=== PATIENT | male | born 1985 | race Caucasian/White ===

== ENCOUNTER 2021-09-10 02:03 | Emergency (ER) | payer BC, SELFPAY ==
--- NOTE | ~2021-09-10 | CT_ITS ---
EXAMINATION: CT abdomen pelvis wo con DATE: 09/10/2021 02:37 INDICATION: Left abdominal pain. TECHNIQUE: Computed tomography (CT) of the abdomen and pelvis was performed without intravenous contr ast. Automated exposure control and iterative reconstruction technique were employed. The dose-length product was 858.46 mGy-cm. COMPARISON: None. FINDINGS: The visualized portions of the lung bases are clear without pneumonia or pleural effusion. The heart size is normal. No pericardial effusion. The liver and spleen are normal. There are gallsto lindsey in the gallbladder, which is normal in size. The pancreas, adrenal glands, and kidneys are normal . There is no urolithiasis. There are no dilated loops of bowel. The appendix is normal. There are no pathologically enlarged lymph nodes. There is no free intraperitoneal fluid. There is mild thoracolu mbar spondylosis. IMPRESSION: 1. Cholelithiasis. Reviewed, dictated and finalized at location A. IMPRESSION: 1. Cholelithiasis.
[2021-09-10 02:05] VITALS: BP 113/58; PULSE 82; RESP 14; TEMP 36.2; O2SAT 98
--- NOTE | 2021-09-10 02:21 | ED.ABDPAIN ---
HPI - Abdominal Pain General Chief Complaint: Abdominal Pain Stated Complaint: abdominal pain Time Seen by Provider: 09/10/21 02:13 History of Present Illness HPI narrative: 35-year-old male presents emergency room secondary to relatively acute onset of some left-sided abdominal pain. He states he went to bed and essentially his normal state of health and woke up and having pain. He describes it as somewhat of a sharp pain. He is nonspecific and weight tries to describe was going on. However he was in such pain on the way here they had to mandrel puller and he had emesis. Never had kidney stones before. His appetites been good lately. He denies any bowel problems such as diarrhea constipation. Denies any urinary complaints. Is never had any surgeries on his abdomen. He states that it does not really hurt when he moves but when he was driving over here seems like when they hit bumps it would hurt more. He did feel a little bloated earlier in the evening. Maintain a good appetite. Related Data Allergies Allergy/AdvReac Type Severity Reaction Status Date / Time No Known Allergies Allergy Verified 09/10/21 02:08 Review of Systems Review of Systems: CONSTITUTIONAL: Denies fever, chills, or sweats. EYES: Denies visual changes, redness, or discharge. ENT: Denies rhinorrhea, congestion, sore throat, or otalgia. CARDIOVASCULAR: Denies chest pain, palpitations, or edema. RESPIRATORY: Denies cough or dyspnea. GASTROINTESTINAL: As per HPI patient had pain to the left side of his abdomen. Had nausea and vomiting on the way to the emergency department no diarrhea constipation GENITOURINARY: Denies dysuria or hematuria. SKIN: Denies rash or itching. MUSCULOSKELETAL: Denies back pain, joint pain, or myalgia. NEUROLOGIC: Denies headache, numbness, or weakness. PSYCHIATRIC: Denies anxiety or depression. [facility] Past Medical History Medical History (Updated 09/10/21 @ 04:25 by Montrell Presley DO) No pertinent past medical history Surgical History Surgical History (Updated 09/10/21 @ 02:23 by Montrell Presley DO) No pertinent past surgical history Social History Social History (Updated 09/10/21 @ 02:23 by Montrell Presley DO) Smoking status: Never smoker Alcohol intake: never Living arrangements: with family Exam Narrative: APPEARANCE: Well appearing, no pain or distress, well-nourished. Head normocephalic and atraumatic. EYES: PERRLA/EOMI, conjunctivae very clear. NOSE: Normal with no drainage EARS:TMS clear Ned Pena, with good light reflex. THROAT: Pharynx clear, no exudate. NECK: Supple. No adenopathy, no masses. RESPIRATORY: Airway patent, respirations nonlabored. Clear to auscultation bilaterally, no rales, rhonchi, wheezing. CARDIOVASCULAR: Regular rate and rhythm without murmurs, rubs, or gallops. ABDOMINAL: Soft with no masses. No rebound rigidity guarding. Not have hyperactive bowel sounds. Musculoskeletal: Moves all extremities. Strength/ROM intact, No edema, No calf tenderness. NEURO: Alert. Cranial nerves II through XII intact. Normal gait. Good coordination. Nonfocal examination. SKIN:: Warm, dry. Normal Color PSYCHIATRIC: Normal affect/mood, normal interaction Course Vital Signs Vital signs: Vital Signs Temperature 97.2 F L 09/10/21 02:05 Pulse Rate 82 09/10/21 02:05 Respiratory Rate 14 09/10/21 02:05 Blood Pressure 113/58 L 09/10/21 02:05 Pulse Oximetry 98 09/10/21 02:05 Oxygen Delivery Room Air 09/10/21 02:05 Temperature 97.2 F L 09/10/21 02:05 Pulse Rate 89 09/10/21 04:26 Respiratory Rate 16 09/10/21 04:26 Blood Pressure 109/65 09/10/21 04:26 Pulse Oximetry 96 09/10/21 04:26 Oxygen Delivery Room Air 09/10/21 02:05 MDM - Abdominal Pain MDM Narrative Medical decision making narrative: Pain is very nonspecific in nature. Laboratory work-up was unremarkable. Urinalysis unremarkable. CT scan as interpreted by the radiologist showed no acute findi
[2021-09-10 02:35] LABS: Basophils Absolute Auto 0.1 K/mm3 (0.0-0.1); Basophils Percent Auto 0.8 % (0.2-1.2); Eosinophils Absolute Auto 0.2 K/mm3 (0-0.3); Eosinophils Percent Auto 2.8 % (0-4.4); Hematocrit 41.2 % (42.0-52.0); Immature Granulocyte Absolute 0.02 K/mm3 (0.00-0.031); Immature Granulocyte Percent A 0.3 % (0-0.5); Lymphocytes Absolute Auto 3.01 K/mm3 (0.9-3.2); Lymphocytes Percent Auto 40.7 % (18.3-44.2); Mean Corpuscular Hemoglobin 30.5 pg (26-34); Mean Corpuscular Volume 89.8 fl (80-100); Mean Platelet Volume 9.5 fl (7.4-10.4); Monocytes Absolute Auto 0.6 K/mm3 (0.1-0.6); Neutrophils Absolute Auto 3.5 K/mm3 (1.3-6.7); Neutrophils Percent Auto 47.4 % (45.5-73.1); Platelet Count Result 330 k/mm3 (150-375); Red Blood Count 4.59 M/mm3 (4.6-6.20); Red Cell Distribution Width 12.2 % (11.5-14.5); White Blood Count 7.4 K/mm3 (4.5-10.0)
[2021-09-10 02:35] LABS: Appearance Urine Clear (Clear); Bilirubin Urine Negative (Negative); Color Urine Yellow (Yellow); Glucose Urine UA Negative (Negative); Ketones Urine Negative (Negative); Leukocyte Esterase Ur Negative LEU/UL (Negative); Nitrate Urine Negative (Negative); Protein Urine Negative (Negative); Specific Grav Ur 1.025 (1.001-1.035)
[2021-09-10 02:37] LABS: Add Urine Microscopic? YES; Blood Urine Trace (Negative)
[2021-09-10 02:44] LABS: Alanine Aminotransferase 30 U/L (6-50); Albumin Level 4.5 g/dL (3.5-5.1); Alkaline Phosphatase 96 U/L (38-126); Anion Gap 6 mmol/L (8-16); Aspartate Amino Transferase 20 U/L (17-59); Bilirubin,Total 0.5 mg/dL (0.2-1.3); Blood Urea Nitrogen 16 mg/dL (9-20); Calcium 8.6 mg/dL (8.4-10.2); Carbon Dioxide 30 mmol/L (22-30); Chloride 101 mmol/L (98-107); Estimated CRCL calculation 114 ml/min; Estimated Glomerular Filt Rate > 60; Glucose 123 mg/dL (65-110); Potassium 3.4 mmol/L (3.4-5.0); Sodium 137 mmol/L (137-145)
[2021-09-10] MEDS: KETOROLAC 30 MG/ML VIAL (*BKC) IV PUSH (02:50)
[2021-09-10] MEDS: ONDANSETRON INJ 4 MG/2 ML VIAL IV PUSH (02:51)
[2021-09-10] MEDS: HYOSCYAMINE SULFATE 0.125 MG TABLET PO (04:24)
[2021-09-10 04:26] VITALS: BP 109/65; PULSE 89; RESP 16; O2SAT 96
[2021-09-10 04:35] VITALS: BP 109/65; PULSE 77; RESP 18; O2SAT 97
== END 2021-09-10 04:36 | disposition home or self-care (01) ==
PROVIDERS: Emergency Provider Emergency Medicine; PCP Internal Medicine
DX: R10.84 Generalized abdominal pain (principal)
CPT/HCPCS: 36415; 74176; 80053; 81001; 85025; 96374; 96375; 99284; A9270; J1885; J2405

== ENCOUNTER 2023-08-31 02:26 | Emergency (ER) | payer BC, SELFPAY ==
--- NOTE | ~2023-08-31 | CT_ITS ---
EXAMINATION: CT abdomen pelvis wo con DATE: 08/31/2023 03:37 INDICATION: Right flank pain TECHNIQUE: Computed tomography (CT) of the abdomen and pelvis was performed without intravenous contr ast. The dose-length product was 876.01 mGy-cm. Automated exposure control and iterative reconstructi on technique were employed. COMPARISON: CT dated 09/10/2021. FINDINGS: Lung bases unremarkable. No significant pleural or pericardial effusion. Gallbladder is pre sent. There are gallstones. The liver, spleen, pancreas, adrenal glands and kidneys are unremarkable. Nonobstructive bowel gas pattern. Normal appendix. No abnormal pelvic masses or fluid collections. N o lymphadenopathy. No significant vascular abnormality. No acute osseous abnormality. IMPRESSION: 1. Cholelithiasis. Reviewed, dictated and finalized at location B. IMPRESSION: 1. Cholelithiasis.
[2023-08-31 02:30] VITALS: BP 137/84; PULSE 79; RESP 20; TEMP 36.2; O2SAT 99
--- NOTE | 2023-08-31 03:08 | ED.ABDPAIN ---
HPI - Abdominal Pain General Chief Complaint: Abdominal Pain Stated Complaint: Left flank/abd pain Time Seen by Provider: 08/31/23 02:53 History of Present Illness HPI narrative: patient presents with nausea and vomiting left flank pain, started intermittently over the last few days but last night became very persistent and very uncomfortable. No dysuria. No testicular pain. No diarrhea. No fevers or chills. Related Data Allergies Allergy/AdvReac Type Severity Reaction Status Date / Time No Known Allergies Allergy Verified 08/31/23 02:32 Review of Systems Review of Systems: All systems reviewed & are unremarkable except as noted in HPI and below PMFSH Past Medical History Medical History (Updated 08/31/23 @ 05:35 by Trisha Bowen MD) No pertinent past medical history Surgical History Surgical History (Updated 09/10/21 @ 02:23 by Montrell Presley, DO) No pertinent past surgical history Social History Social History (Updated 09/10/21 @ 02:23 by Montrell Presley, DO) Smoking status: Never smoker Alcohol intake: never Living arrangements: with family Exam Narrative: EXAMINATION OF ORGAN SYSTEMS/BODY AREAS: Constitutional: Vital signs per nursing GENERAL: appears very uncomfortable, slightly retching and looking like he is about to pass out from pain, curled up HEAD: Normal with no signs of head trauma. EYES: EOMI, conjunctiva normal ENT: Hearing grossly intact LUNGS: Nonlabored breathing. HEART: [Regular rate and rhythm] ABD: [Soft], [left flank very minimally tender to palpation]; no RLQ tenderness EXT: Normal range of motion SKIN: [No rashes or lesions.] NEURO: [Alert and oriented x 3. No gross focal sensory or strength deficits.] PSYCH: Normal affect Course Vital Signs Vital signs: Vital Signs Temperature 97.2 F L 08/31/23 02:30 Pulse Rate 79 08/31/23 02:30 Respiratory Rate 20 08/31/23 02:30 Blood Pressure 137/84 08/31/23 02:30 Pulse Oximetry 99 08/31/23 02:30 Oxygen Delivery Room Air 08/31/23 02:30 Temperature 97.2 F L 08/31/23 02:30 Pulse Rate 79 08/31/23 02:30 Respiratory Rate 20 08/31/23 02:30 Blood Pressure 137/84 08/31/23 02:30 Pulse Oximetry 99 08/31/23 02:30 Oxygen Delivery Room Air 08/31/23 02:30 MDM - Abdominal Pain MDM Narrative Medical decision making narrative: 37-year-old male presenting with left flank pain, nausea vomiting, that has been worsening over the last week, he does appear quite uncomfortable here, but nontoxic. Declined pain medicine at this time. Agreeable to fluids and Zofran. My differential includes kidney stone, considered possible dissection however he has no risk factors, is very young, and has no focal neurologic deficits, no focal numbness or weakness, Gastroenteritis or gastritis, MSK pain or muscle spasm. labs within acceptable limits, CT noncontrast showing cholelithiasis but no other acute abnormality. After morphine he still feels uncomfortable, and is still nauseous, I did therefore give Reglan, Benadryl, and Toradol and Protonix. On re-evaluation, he looks very comfortable now. He states that his symptoms have all resolved. He does not have any more pain, he is no longer nauseous. He is agreeable to outpatient management at this time with return precautions, he does have a primary care doctor and will follow up with them. Lab Data 08/31/23 03:07 08/31/23 03:07 Labs: Lab Results 08/31/23 Range/Units 03:07 WBC 9.5 (4.5-10.0) K/mm3 RBC 4.75 (4.6-6.20) M/mm3 Hgb 14.7 (14.0-18.0) g/dL Hct 43.3 (42.0-52.0) % MCV 91.2 (80-100) fl MCH 30.9 (26-34) pg MCHC 33.9 (32-36) g/dl RDW 11.9 (11.5-14.5) % Plt Count 367 (150-375) k/mm3 MPV 9.6 (7.4-10.4) fl Immature Gran % (Auto) 0.4 (0-0.5) % Neut % (Auto) 57.1 (45.5-73.1) % Lymph % (Auto) 32.7 (18.3-44.2) % [place] % (Auto) 7.8 (2.6-8.5) % Eos % (Auto)
[2023-08-31 03:13] LABS: Basophils Absolute Auto 0.1 K/mm3 (0.0-0.1); Basophils Percent Auto 0.6 % (0.2-1.2); Eosinophils Absolute Auto 0.1 K/mm3 (0-0.3); Eosinophils Percent Auto 1.4 % (0-4.4); Hematocrit 43.3 % (42.0-52.0); Hemoglobin 14.7 g/dL (14.0-18.0); Immature Granulocyte Absolute 0.04 K/mm3 (0.00-0.031); Immature Granulocyte Percent A 0.4 % (0-0.5); Lymphocytes Percent Auto 32.7 % (18.3-44.2); Mean Corpuscular HGB Conc 33.9 g/dl (32-36); Mean Corpuscular Hemoglobin 30.9 pg (26-34); Mean Corpuscular Volume 91.2 fl (80-100); Mean Platelet Volume 9.6 fl (7.4-10.4); Monocytes Absolute Auto 0.7 K/mm3 (0.1-0.6); Monocytes Percent Auto 7.8 % (2.6-8.5); Neutrophils Absolute Auto 5.4 K/mm3 (1.3-6.7); Neutrophils Percent Auto 57.1 % (45.5-73.1); Platelet Count Result 367 k/mm3 (150-375); Red Blood Count 4.75 M/mm3 (4.6-6.20); Red Cell Distribution Width 11.9 % (11.5-14.5); White Blood Count 9.5 K/mm3 (4.5-10.0)
[2023-08-31] MEDS: ONDANSETRON INJ 4 MG/2 ML VIAL IV PUSH (03:13)
[2023-08-31] MEDS: LACTATED RINGERS 1,000 ML 999 ML IV CONT (03:13)
[2023-08-31 03:29] LABS: Alanine Aminotransferase 34 U/L (6-50); Albumin Level 4.7 g/dL (3.5-5.1); Alkaline Phosphatase 88 U/L (38-126); Anion Gap 9 mmol/L (4-12); Aspartate Amino Transferase 25 U/L (17-59); Bilirubin,Total 0.8 mg/dL (0.2-1.3); Blood Urea Nitrogen 13 mg/dL (9-20); Calcium 8.9 mg/dL (8.4-10.2); Carbon Dioxide 24 mmol/L (22-30); Chloride 103 mmol/L (98-107); Estimated CRCL calculation 123 ml/min; Estimated Glomerular Filt Rate > 60; Glucose 123 mg/dL (65-110); Lipase 123 U/L (23-300); Potassium 4.8 mmol/L (3.4-5.0); Sodium 136 mmol/L (137-145)
[2023-08-31] MEDS: MORPHINE SULFATE (*CRX) 2 MG/ML INJ IV PUSH (03:45)
[2023-08-31] MEDS: METOCLOPRAMIDE HCL INJ 10 MG/2 ML VIAL IV PUSH (04:50)
[2023-08-31] MEDS: diphenhydrAMINE HCl INJ 50 MG/ML VIAL 25 MG IV PUSH (04:51)
[2023-08-31] MEDS: PANTOPRAZOLE SODIUM IV 40 MG VIAL IV PUSH (05:12)
[2023-08-31] MEDS: KETOROLAC 15 MG/ML VIAL (*BKC) IV PUSH (05:12)
[2023-08-31 05:44] VITALS: BP 100/61; PULSE 74; RESP 18; O2SAT 100
== END 2023-08-31 05:45 | disposition home or self-care (01) ==
PROVIDERS: Emergency Provider Emergency Medicine
DX: R11.2 Nausea with vomiting, unspecified (principal); R10.9 Unspecified abdominal pain
CPT/HCPCS: 36415; 74176; 80053; 83690; 85025; 96361; 96374; 96375; 99284; C9113; J1200; J1885; J2270; J2405; J2765; J7120

== ENCOUNTER 2024-06-19 02:39 | Emergency (ER) | payer BC, SELFPAY ==
--- NOTE | ~2024-06-19 | CT_ITS ---
EXAMINATION: CT abdomen pelvis w con DATE: 06/19/2024 04:57 INDICATION: Abdominal pain. Nausea and vomiting. TECHNIQUE: Computed tomography (CT) of the abdomen and pelvis was performed with 100 mL Omnipaque 350 intravenous contrast. Automated exposure control and iterative reconstruction technique were employe d. The dose-length product was 849.47 mGy-cm. COMPARISON: CT abdomen and pelvis 08/31/2023 FINDINGS: The visualized portions of the lung bases are clear without pneumonia or pleural effusion. The heart size is normal. No pericardial effusion. The liver and spleen are normal. There are gallsto lindsey in the gallbladder, which is normal in size. The pancreas, adrenal glands, and kidneys are normal . There are no dilated loops of bowel. The appendix is normal. There are no pathologically enlarged l ymph nodes. There is no ascites. There is mild chronic anterior wedging of T11 vertebral body. There is mild lumbar spondylosis. IMPRESSION: 1. Cholelithiasis. Reviewed, dictated and finalized at location A. IMPRESSION: 1. Cholelithiasis.
[2024-06-19 02:40] VITALS: BP 115/80; PULSE 88; RESP 18; TEMP 36.5; O2SAT 100
--- OUTSIDE RECORDS SUMMARY | 2024-06-19 02:41 | XMS_ITS | Clinical Summary ---
Author Organization [facility] Medical Office Building B Address [address] [place] [address] Care Team Providers Care Sampler And Test Preparer Name Role Phone Gareth Hansen MD Primary Care Provider Allergies No known active allergies Medications triamcinolone (NASACORT) 55 mcg nasal inhaler Administer 2 sprays into each nostril daily Once at night Active famotidine (PEPCID) 20 mg tablet Take 1 tablet (20 mg total) by mouth daily 4 Active Active Problems Problem Noted Date Diagnosed Date Calculus of gallbladder with out cholecystitis without obstruction 09/30/2023 Overview (10/02/2023): Requested and received CT of the abdomen pelvis without contrast done on 08/31/2023 at [facility] Emergency Department (scanned result) - limited information, whole report states - gallbladder is present. There are gallstones. Otherwise normal findings on the rest of imaging Order placed for [facility] US 10/14 - Caller s Concern: patient states he believes this was stress related and his symptoms have resolved and he is no longer taking the Pepcid. Patient would like to hold off on any additional testing Does message need to be routed? Yes-FYI Only Abdominal pain 09/21/2023 Overview (09/30/2023): Requested and received CT of the abdomen pelvis without contrast done on 08/31/2023 at [facility] Emergency Department (scanned result) - limited information, whole report states - gallbladder is present. There are gallstones. Otherwise normal findings on the rest of imaging Assessment & Plan (09/21/2023 3:11 AM CDT): - chronic, intermittent - has had ED visits, 2 years go and one recently - recently started Pepcid and has not had pain - requesting records from [facility] for CT Abdomen Pelvis done via ED department - report has been told he has gallstones Preventative health care 09/12/2023 Assessment & Plan (09/12/2023 12:18 PM CDT): - New or chronic worsening conditions: no significant acute issues on this visit - Mental health: no significant psychiatric/mental health conditions affecting her day to day functioning - Dental health: Recommend regular dental care and cleaning. Discussed importance of regular tooth brushing, flossing, and dental visits. - Nutrition: Recommend moderation in sodium/caffeine intake, saturated fat and cholesterol, caloric balance, sufficient intake of fresh fruits, vegetables - Exercise: Recommend to exercise at least 30 minutes moderate to vigorous exercise most days of the week. 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 09/12/2023 Assessment & Plan (09/21/2023 3:12 AM CDT): - noted in right lower extremity - mostly asymptomatic per patient, no pain, bleeding - discussed management options - recommend compression socks at this time - obtain CT Abdomen Pelvis from [facility] that he recently had Tinnitus, left 09/28/2019 Assessment & Plan (09/21/2023 3:10 AM CDT): - chronic condition, persistent - has had eustachian tube dysfunction and tinnis in left ear which occurred in 2019, saw ENT in , he was prescribed nasocort, gave up opn it after several months as it did not make a differnce Audiogram: 10/13/2019 The pure tone results on the right were normal The pure tone results on the left were normal. Word recognition score on the right: 100% Word recognition score on the left: 100% Tympanogram on the right was type A Tympanogram on the left was type A Assessment & Plan (09/18/2020 5:41 PM CDT): Discussed allergies, versus reflux, versus TMJ dysfunction When ringing loudest in the ear, check blood pressure with home blood pressure cuff Monitor at this point, consider warm compresses to side of face with onset Consider CT angiogram versus temporal bone scan Continue Nasacort for one month total and consider Pepcid if no improvement Assessment & Plan (09/28/2019 5:12 PM CDT): Hearing test 64 ounces of caffeine free and soda free fluid daily Low salt diet Tinnitus etiology discussed and Handout provided If hearing test and ear pressure test normal or negative pressure noted on the left ear, consider trial of Nasacort 2 sprays into each nostril while looking down over the sink, do not sniff in or blow nose after use for at least 30 minutes Resolved Problems Problem Noted Date Diagnosed Date Resolved Date Bilateral hearing loss 09/28/201909/11 Assessment & Plan (09/18/2020 10:45 PM CDT): Discussed allergies, versus reflux, versus TMJ dysfunction When ringing loudest in the ear, check blood pressure with home blood pressure cuff Monitor at this point, consider warm compresses to side of face with onset Consider CT angiogram versus temporal bone scan Continue Nasacort for one month total and consider Pepcid if no improvement Assessment & Plan (09/28/2019 5:12 PM CDT): Hearing test Immunizations Immunization Administration Dates Next Due Influenza, Trivalent, IM (MDV) 03/15/2010 Tdap 01/09/2011 Family History Medical History Relation Name Comments Other Neg Hx No history of C ancer; Social History Tobacco Use Types Packs/Day Years Used Date Smoking Tobacco: Never Smokeless Tobacco: Never Tobacco Cessation:Counseling Given: Yes Alcohol Use Standard Drinks/Week Comments No 0 (1 standard drink = 0.6 oz pur e alcohol) AUDIT-C Answer Date Recorded Q1: How often do you have a drink containing alcohol? Never 09/12/2023 Q2: How many drinks containi ng alcohol do you have on a typical day when you are drinking? Patient does not drink Q3: How often do you have si x or more drinks on one occasion? 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 Gender Identity Male 09/18/2020 11:21 AM CDT Sexual Orientation Straight 09/18/2020 11 :21 AM CDT Obstetrics History Last Filed Vital Signs Vital Sign Reading Time Taken Comments Blood Pressure 110/80 09/12/2023 12:00 PM CDT Pulse 86 09/12/2023 12:00 PM CDT Temperature 37 C (98.6 F) 09/12/2023 12:00 PM CDT Respiratory Rate 16 09/12/2023 12:0 0 PM CDT Oxygen Saturation 97% 09/12/2023 12: 00 PM CDT Inhaled Oxygen Concentration - - Weight 111.4 kg (245 lb 9.6 oz) 024 12:00 PM CDT Height 182.9 cm (6') 09/12/2023 12:00 PM CDT Body Mass Index 33.31 09/12/2023 12:00 PM CDT Plan of Treatment Health Maintenance Due Date Last Done Comments Hepatitis C Screening 1985 Varicella Vaccines (1 of 2 - 13+ 2-dose series) 1998 DTaP/Tdap/Td Vaccine (7 - Td or Tdap) 01/09/2021 01/09/2011, 10/22/1991, 08/04/1987, Additional history exists Covid-19 Vaccine ( season) 2023 03/26/2023, 04/01/2022, 02/12/2021, Additional history exists Influenza Vaccine (#1) 2023 , 04/01/2022, 02/12/2021, Additional history exists Depression Screening 09/11/2024 09/12/2023 Regular Well Visit/Exam 18-64 09/11/2024 09/12/2023 Hepatitis B Screening Completed 12/31/1996 , 10/26/1996, 05/11/1996 HPV Vaccines Aged Out No longer eligi ble based on patient's age to complete this topic Pneumococcal vaccine <65 Aged Out No longer eligible based on patient's age to complete this topic Insurance [employer] [place] [address] [employer] Care Teams Sampler And Test Preparer Relationship Specialty Start Date End Date Gareth Hansen MD [address] [place] [address] PCP - General Family Medicine 09/12/23
--- OUTSIDE RECORDS SUMMARY | 2024-06-19 02:41 | XMS_ITS | Referral Summary ---
Author Organization [facility] Medical Office Building B Address [address] [place] [address] Care Team Providers Care Nuclear Powerplant Mechanic Helper Name Role Phone Gareth Hansen MD Primary [...] pelvis without contrast done on 08/31/2023 at [facility] Emergency Department (scanned result) - limited information, whole report states - gallbladder is present. There are gallstones. Otherwise normal findings on the rest of imaging Order placed for [facility] US 10/14 - Caller s Concern: patient [...] pelvis without contrast done on 08/31/2023 at [facility] Emergency Department (scanned result) - limited information, whole report states - gallbladder is present. There are gallstones. 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
--- OUTSIDE RECORDS SUMMARY | 2024-06-19 02:41 | XMS_ITS | Clinical Summary ---
Author Organization [facility] Address [address] [place] [address] Care Team Providers Care Brokerage Purchase And Sale Clerk Name Role Phone Unknown, Provider Primary Care Provider Unavaila ble Source Comments [facility],non-owned Affiliates and Associated Physician Practices is amultiple site organization consisting of ambulatory clinics and hospital sitesin [place], [place], [place] and [place]. This disclosure is being madepursuant to the Care Everywhere program and may not contain all information available regarding this patient. Last updated 17.[facility] Social History Tobacco Use Types Packs/Day Years Used Date Smoking Tobacco: Never Assessed Sex and Gender Information Value Date Recorded Sex Assigned at Not on file Gender Identity Not on file Sexual Orientation Not on file Plan of Treatment Health Maintenance Due Date Last Done Comments HIV SCREENING 2000 HEPATITIS C SCREENING 11/08/2003 DTAP/TDAP/TD VACCINES (1 - Tdap) 2004 HEPATITIS B VACCINE (1 of 3 - 19+ 3-dose series) 2004 COVID-19 VACCINE ( - 2023-2 5 season) 2023 INFLUENZA VACCINE (#1) 2023 DEPRESSION SCREENING 03/24/2024 ZOSTER VACCINE (1 of 2) 11/13/2035 HIB VACCINE Aged Out No longer eligi ble based on patient's age to complete this topic HPV VACCINE Aged Out No longer eligi ble based on patient's age to complete this topic MENINGOCOCCAL (Group B) VACC INE SHARED DECISION-MAKING Aged Out No longer eligibl e based on patient's age to complete this topic MENINGOCOCCAL GROUPS A/C/Y/W VACCINE Aged Out No longer eligible b ased on patient's age to complete this topic PNEUMOCOCCAL VACCINE Aged Out No long er eligible based on patient's age to complete this topic Care Teams Brokerage Purchase And Sale Clerk Relationship Specialty Start Date End Date Unknown, Provider PCP - General 03/05/16
--- OUTSIDE RECORDS SUMMARY | 2024-06-19 02:41 | XMS_ITS | Encounter Summary ---
Author Organization [facility] Healthcare Address [address] [place] [address] Care Team Providers Care Dietary Clerk Name Role Phone No, Physician Primary Care Provider [phone] Gareth Hansen MD Primary Care Provider Encounter Details Date Type Department Care Team (Late st Contact Info) Description 08/31/2023 Orders Only [facility] Health Information Management [address] [place] [id number] Gareth Hansen MD [address] [place] [address] [address] [address] Social History Tobacco Use Types Packs/Day Years Used Date Smoking Tobacco: Never Smokeless Tobacco: Never Alcohol Use Standard Drinks/Week Comments No 0 (1 standard drink = 0.6 oz pur e alcohol) Sex and Gender Information Value Date Recorded Sex Assigned at Not on file 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 Unfortunately has limited information as stating that there were gallstones noted. Recommend obtaining right upper quadrant ultrasoundfor better evaluation with diagnosis of cholelithiasis. Staff place order for right upper quadrant ultrasound for diagnosis of cholelithiasis documented in this encounter Plan of Treatment Not on file documented as of this encounter Procedures Procedure Name Priority Date/Time Associated Diagnosis Comments SCAN - LABS 08/31/2023 documented in this encounter Results * SCAN - LABS (08/31/2023) us Gareth Hansen MD Final R esult documented in this encounter Visit Diagnoses Not on filedocumented in this encounter Care Teams Dietary Clerk Relationship Specialty Start Date End Date No, Physician PCP - General 08/19/23 09/11/23 Gareth Hansen MD [address] [place] [address] PCP - General Family Medicine 09/12/23 documented as of this encounter
[2024-06-19 04:04] VITALS: BP 114/85; PULSE 98; RESP 17; O2SAT 98
--- NOTE | 2024-06-19 04:09 | PC.NURSE ---
Upon time of this RN assessments, patient states he does feel better and his symptoms have improved.
[2024-06-19 04:11] LABS: Basophils Absolute Auto 0.1 K/mm3 (0.0-0.1); Basophils Percent Auto 0.7 % (0.2-1.2); Eosinophils Absolute Auto 0.1 K/mm3 (0-0.3); Eosinophils Percent Auto 1.3 % (0-4.4); Hematocrit 42.8 % (42.0-52.0); Immature Granulocyte Absolute 0.01 K/mm3 (0.00-0.031); Immature Granulocyte Percent A 0.1 % (0-0.5); Lymphocytes Absolute Auto 1.48 K/mm3 (0.9-3.2); Lymphocytes Percent Auto 20.6 % (18.3-44.2); Mean Corpuscular Hemoglobin 30.7 pg (26-34); Mean Corpuscular Volume 87.7 fl (80-100); Mean Platelet Volume 10.2 fl (7.4-10.4); Monocytes Absolute Auto 0.5 K/mm3 (0.1-0.6); Monocytes Percent Auto 7.4 % (2.6-8.5); Neutrophils Percent Auto 69.9 % (45.5-73.1); Platelet Count Result 304 k/mm3 (150-375); Red Blood Count 4.88 M/mm3 (4.6-6.20); White Blood Count 7.2 K/mm3 (4.5-10.0)
--- NOTE | 2024-06-19 04:15 | PC.NURSE ---
CHRISTINE per place CT with contrast of abd/pelvis.
[2024-06-19 04:21] LABS: Alanine Aminotransferase 34 U/L (6-50); Albumin Level 4.8 g/dL (3.5-5.1); Alkaline Phosphatase 87 U/L (38-126); Anion Gap 16 mmol/L (4-12); Aspartate Amino Transferase 20 U/L (17-59); Bilirubin,Total 0.6 mg/dL (0.2-1.3); Blood Urea Nitrogen 17 mg/dL (9-20); Calcium 9.3 mg/dL (8.4-10.2); Carbon Dioxide 23 mmol/L (22-30); Chloride 100 mmol/L (98-107); Estimated Glomerular Filt Rate > 60; Glucose 126 mg/dL (65-110); Lipase 138 U/L (23-300); Potassium 3.7 mmol/L (3.4-5.0); Sodium 139 mmol/L (137-145)
[2024-06-19 05:44] LABS: Add Urine Microscopic? YES; Appearance Urine Clear (Clear); Bacteria Urine None Seen /hpf; Bilirubin Urine Negative (Negative); Blood Urine Negative (Negative); Color Urine Dark Yellow (Yellow); Glucose Urine UA Negative (Negative); Ketones Urine 2+ mg/dL (Negative); Leukocyte Esterase Ur Negative LEU/UL (Negative); Nitrate Urine Negative (Negative); Non Pathogenic Casts 0-2; Protein Urine Trace mg/dL (Negative); RBC Urine 0-2 /hpf (0-2); Specific Grav Ur > 1.045 (1.001-1.035); Squamous Epithelial Cell Urine None Seen /hpf (Few); WBC Urine 0-5 /hpf (0-3); pH Urine 5.5 (5.0-9.0)
--- OUTSIDE RECORDS SUMMARY | 2024-06-19 06:22 | XMS_ITS | Clinical Summary ---
Author Organization [facility] Medical Office Building B Address [address] [place] [address] Care Team Providers Care Business Office Coordinator Name Role Phone Gareth Hansen MD Primary [...] pelvis without contrast done on 08/31/2023 at [facility] Emergency Department (scanned result) - limited information, whole report states - gallbladder is present. There are gallstones. Otherwise normal findings on the rest of imaging Order placed for [facility] US 10/14 - Caller s [...] pelvis without contrast done on 08/31/2023 at [facility] Emergency Department (scanned result) - limited information, whole report states - gallbladder is present. There are gallstones. 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
--- OUTSIDE RECORDS SUMMARY | 2024-06-19 06:22 | XMS_ITS | Referral Summary ---
Author Organization [facility] Medical Office Building B Address [address] [place] [address] Care Team Providers Care Asphalt Roller Operator Name Role Phone Gareth Hansen MD Primary [...] pelvis without contrast done on 08/31/2023 at [facility] Emergency Department (scanned result) - limited information, whole report states - gallbladder is present. There are gallstones. Otherwise normal findings on the rest of imaging Order placed for [facility] US 10/14 - Caller s [...] pelvis without contrast done on 08/31/2023 at [facility] Emergency Department (scanned result) - limited information, whole report states - gallbladder is present. There are gallstones. 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
--- OUTSIDE RECORDS SUMMARY | 2024-06-19 06:22 | XMS_ITS | Clinical Summary ---
Author Organization [facility] [employer] Address [address] [place] [address] Care Team Providers Care Campaign Marketing Specialist Name Role Phone Unknown, Provider Primary Care Provider Unavaila ble Source Comments [facility],non-owned Affiliates and Associated Physician Practices is amultiple site organization consisting of ambulatory clinics and hospital sitesin [place], [place], [place] and [place]. This disclosure is being madepursuant to the Care Everywhere program and may not contain all information available regarding this patient. Last updated 17.[facility] [employer] Social History Tobacco Use Types Packs/Day Years [...] age to complete this topic Care Teams Campaign Marketing Specialist Relationship Specialty Start Date End Date Unknown, Provider PCP - General 03/05/16
--- OUTSIDE RECORDS SUMMARY | 2024-06-19 06:22 | XMS_ITS | Encounter Summary ---
Author Organization [facility] Healthcare Address [address] [place] [address] Care Team Providers Care Import Export Coordinator Name Role Phone No, Physician Primary Care Provider [phone] Gaerth Hansen MD Primary Care Provider Encounter Details Date Type Department Care Team (Late st Contact Info) Description 08/31/2023 Orders Only [facility] [place] Management [address] [place] [id number] Gareth Hansen MD [address] [place] [address] [address] [address] Social History Tobacco Use Types Packs/Day Years Used Date Smoking Tobacco: Never Smokeless Tobacco: Never Alcohol Use Standard Drinks/Week Comments No 0 (1 standard drink = 0.6 oz pur e alcohol) Sex and Gender Information Value Date Recorded Sex Assigned at Not on file 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. Unfortunately has limited information as stating that [...] on filedocumented in this encounter Care Teams Import Export Coordinator Relationship Specialty Start Date End Date No, Physician PCP - General 08/19/23 09/11/23 Gareth Hansen MD [address] [facility] [place] [address] PCP - General Family Medicine 09/12/23 documented as of this encounter
--- NOTE | 2024-06-19 06:28 | ED_ITS ---
HPI - General Adult General Chief complaint: Abdominal Pain Stated complaint: nausea abd/back/flank pain Time Seen by Provider: 06/19/24 06:16 History of Present Illness HPI narrative: This is a 30-year-old male presenting with 4 weeks of abdominal pain. Pain is located on the left side of his abdomen. It radiates to his back. Described as a burning and aching pain. It is worse after he eats acidic or fatty foods. He has not seen a GI or surgeon for these symptoms. He denies fevers chills nausea vomiting Related Data Allergies Allergy/AdvReac Type Severity Reaction Status Date / Time No Known Allergies Allergy Verified 06/19/24 04:05 PMFSH Past Medical History Medical History No pertinent past medical history Surgical History Surgical History No pertinent past surgical history Social History Social History Smoking status: Never smoker Alcohol intake: never Living arrangements: with family Exam 2 Narrative: APPEARANCE: No apparent distress. Head: atraumatic. EYES: EOMI, NOSE: Atraumatic NECK: Trachea midline RESPIRATORY: No increased rate of breathing CARDIOVASCULAR: RRR, ABDOMINAL: Soft nontender no guarding or rebound no CVA tenderness MUSCULOSKELETAl: No obvious deformities NEURO: Alert. Moving 4/4 extremities SKIN:: Warm, dry. Normal color PSYCHIATRIC: Normal affect Course Vital Signs Vital signs: Vital Signs Temperature 97.7 F 06/19/24 02:40 Pulse Rate 88 06/19/24 02:40 Respiratory Rate 18 06/19/24 02:40 Blood Pressure 115/80 06/19/24 02:40 Pulse Oximetry 100 06/19/24 02:40 Oxygen Delivery Room Air 06/19/24 02:40 Temperature 97.7 F 06/19/24 02:40 Pulse Rate 98 06/19/24 04:04 Respiratory Rate 17 06/19/24 04:04 Blood Pressure 114/85 06/19/24 04:04 Pulse Oximetry 98 06/19/24 04:04 Oxygen Delivery Room Air 06/19/24 02:40 Medical Decision Making [facility] Narrative Medical decision making narrative: -Course: 38-year-old male presenting with left-sided epigastric pain. Laboratory studies within normal limits. CT abdomen pelvis showed cholelithiasis without evidence of cholecystitis. History and physical are most consistent with gastritis/peptic ulcer disease although it is possible that this is atypical biliary colic. Patient will be trialed on a course of Protonix and given follow-up with GI. Given return precautions for fevers severe abdominal pain or intractable nausea vomiting. -DDX includes but is not limited to: Gastritis/peptic ulcer disease, gallbladder disease, pancreatitis Vital Signs Vital Signs: Vital Signs Temperature 97.7 F 06/19/24 02:40 Pulse Rate 88 06/19/24 02:40 Respiratory Rate 18 06/19/24 02:40 Blood Pressure 115/80 06/19/24 02:40 Pulse Oximetry 100 06/19/24 02:40 Oxygen Delivery Room Air 06/19/24 02:40 Temperature 97.7 F 06/19/24 02:40 Pulse Rate 98 06/19/24 04:04 Respiratory Rate 17 06/19/24 04:04 Blood Pressure 114/85 06/19/24 04:04 Pulse Oximetry 98 06/19/24 04:04 Oxygen Delivery Room Air 06/19/24 02:40 Lab Data 06/19/24 04:06 06/19/24 04:06 Labs: Lab Results 06/19/24 06/19/24 Range/Units 04:06 05:25 WBC 7.2 (4.5-10.0) K/mm3 RBC 4.88 (4.6-6.20) M/mm3 Hgb 15.0 (14.0-18.0) g/dL Hct 42.8 (42.0-52.0) % MCV 87.7 (80-100) fl MCH 30.7 (26-34) pg MCHC 35.0 (32-36) g/dl RDW 12.0 (11.5-14.5) % Plt Count 304 (150-375) k/mm3 MPV 10.2 (7.4-10.4) fl Immature Gran % (Auto) 0.1 (0-0.5) % Neut % (Auto) 69.9 (45.5-73.1) % Lymph % (Auto) 20.6 (18.3-44.2) % [place] % (Auto) 7.4 (2.6-8.5) % Eos % (Auto) 1.3 (0-4.4) % Baso % (Auto) 0.7 (0.2-1.2) % Lymph # (Auto) 1.48 (0.9-3.2) K/mm3 [place] # (Auto) 0.5 (0.1-0.6) K/mm3 Eos # (Auto) 0.1 (0-0.3) K/mm3 Baso # (Auto) 0.1 (0.0-0.1) K/mm3 Abs Immat Gran (auto) 0.01 (0.00-0.031) K/mm3 Absolute Neuts (auto) 5.0 (1.3-6.7) K/mm3 Absolute Nucleated RBC 0.000 (0.0-0.012) K/mm3 Nucleated RBC % 0.0 (0.0-0.2) % Sodium 139 (137-145) mmol/L Potassium 3.7 (3.4-5.0) mmol/L Chloride 100 (98-107) mmol/L Carbon Dioxide 23 (22-30) mmol/L Anion Gap 16 H (4-12) mmol/L BUN 17 (9-20) mg/dL Creatinine 0.93 (0.7-1.3) mg/dL Estim Creat Clear Calc Not Reportable Estimated GFR > 60 (59 - ) Glucose 126 H (65-110) mg/dL Calcium 9.3 (8.4-10.2) mg/dL Total Bilirubin 0.6 (0.2-1.3) mg/dL AST 20 (17-59) U/L ALT 34 (6-50) U/L Alkaline Phosphatase 87 (38-126) U/L Total Protein 8.0 (6.3-8.2) g/dL Albumin 4.8 (3.5-5.1) g/dL Lipase 138 (23-300) U/L Urine Color Dark yellow (Yellow) Urine Appearance Clear (Clear) Urine pH 5.5 (5.0-9.0) Ur Specific [place] > 1.045 H (1.001-1.035) Urine Protein Trace (Negative) mg/dL Urine Glucose (UA) Negative (Negative) mg/dL Urine Ketones 2+ H (Negative) mg/dL Ur Blood (Man) Negative (Negative) Urine Nitrate Negative (Negative) Urine Bilirubin Negative (Negative) Urine Urobilinogen 1.0 (<2.0) mg/dL Leukocyte Esterase Rfl Negative (Negative) MAURICIO/UL Urine RBC 0-2 (0-2) /hpf Urine WBC 0-5 (0-3) /hpf Ur Squamous Epith Cells None seen (Few) /hpf Urine Bacteria None seen /hpf Urine Casts 0-2 Discharge Plan Discharge Clinical Impression: Abdominal pain Patient Disposition: Home, Self-Care Condition: Stable Instructions: Antibiotic Form, Abdominal Pain (ED) Additional Instructions: You were seen emergency department for abdominal pain. Please trial a course of Protonix to see if that improves your symptoms. Please eat a bland diet. Follow up with the GI physician listed below. If you develop any new or worsening symptoms like severe abdominal pain fevers or intractable nausea vomiting please return to the ED for re-evaluation. Patient Language: Mongolian Prescriptions: New pantoprazole [Protonix] 40 mg tablet,delayed release (DR/EC) 40 mg PO HS 42 Days Qty: 42 0RF No Action hyoscyamine sulfate [Levsin/SL] 0.125 mg tablet, sublingual 0.125 mg sublingual QID Qty: 10 0RF acetaminophen [Tylenol Extra Strength] 500 mg tablet 1,000 mg PO Q6H PRN (Reason: pain) Qty: 50 0RF ibuprofen 600 mg tablet 600 mg PO TID PRN (Reason: fever or pain) Qty: 30 0RF ondansetron 4 mg tablet,disintegrating 4 mg PO Q8H PRN (Reason: nausea and vomiting) Qty: 10 0RF famotidine 20 mg tablet 20 mg PO DAILY Qty: 30 0RF Follow-up/Referrals: UNKNOWN,DOCTOR [Primary Care Provider] -
[2024-06-19] MEDS: PANTOPRAZOLE SODIUM IV 40 MG VIAL IV PUSH (06:45)
[2024-06-19 06:51] VITALS: BP 132/93; PULSE 92; RESP 19; O2SAT 99
== END 2024-06-19 06:53 | disposition home or self-care (01) ==
PROVIDERS: Emergency Provider Emergency Medicine
DX: R10.13 Epigastric pain (principal); K80.20 Calculus of gallbladder without cholecystitis without obstruction
CPT/HCPCS: 36415; 74177; 80053; 81001; 83690; 85025; 96374; 99284; J2470; Q9967

== ENCOUNTER 2024-08-24 11:16 | Outpatient (CLI) | payer BC, SELFPAY ==
--- OUTSIDE RECORDS SUMMARY | 2024-08-24 11:32 | XMS_ITS | Clinical Summary ---
Author Organization [facility] Medical Office Building B Address [address] [place] [address] Care Team Providers Care Lip Reading Teacher Name Role Phone Gareth Hansen MD Primary [...] pelvis without contrast done on 08/31/2023 at [facility] Emergency Department (scanned result) - limited information, whole report states - gallbladder is present. There are gallstones. Otherwise normal findings on the rest of imaging Order placed for [facility] US 10/14 - Caller s [...] pelvis without contrast done on 08/31/2023 at [facility] Emergency Department (scanned result) - limited information, whole report states - gallbladder is present. There are gallstones. 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 Gender Identity Male 09/18/2020 11:21 AM CDT [...] 2023 03/26/2023, 04/01/2022, 02/12/2021, Additional history exists Depression Screening 09/11/2024 09/12/2023 Regular Well Visit/Exam 18-64 09/11/2024 09/12/2023 Influenza Vaccine (Season Ended) 2024 03/26/2023, 04/01/2022, 02/12/2021, Additional history exists Hepatitis B Screening Completed 12/31/1996 , 10/26/1996, 05/11/1996 HPV Vaccines Aged Out No longer eligi ble based on patient's age to complete this topic Pneumococcal vaccine <65 Aged Out No longer eligible based on patient's age to complete this topic Insurance [place] [address] [place] [address] [employer] ACCESS CHOICE Care Teams Lip Reading Teacher Relationship Specialty Start Date End Date Gareth Hansen MD PCP - General Family Medicine 09/12/23
--- OUTSIDE RECORDS SUMMARY | 2024-08-24 11:32 | XMS_ITS | Referral Summary ---
Author Organization [facility] Medical Office Building B Address [address] [place] [address] Care Team Providers Care Container Crane Operator Name Role Phone Gareth Hansen MD [...] pelvis without contrast done on 08/31/2023 at [facility] Emergency Department (scanned result) - limited information, whole report states - gallbladder is present. There are gallstones. 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 Gender Identity Male 09/18/2020 11:21 AM CDT [...] Plan of Treatment Not on file Insurance [facility] ACCESS CHOICE Member Subscriber Plan / Payer (Ef fective 2018-Present) Name:Mj Ortega Relation to Subscriber:Self Name:Mj Ortega Payer ID:[id number] (NAIC) Type:[employer] Address: [address] [place] [address] [facility] ACCESS CHOICE Member Subscriber Plan / Payer (Ef fective 2018-Present) Name:Mj Ortega Relation to Subscriber:Self Name:Mj Ortega Payer ID:[id number] (NAIC) Type:[employer] Address: [address] [place] [address] Care Teams Container Crane Operator Relationship Specialty Start Date End Date Gareth Hansen MD PCP - General Family Medicine 09/12/23
--- OUTSIDE RECORDS SUMMARY | 2024-08-24 11:32 | XMS_ITS | Clinical Summary ---
Author Organization [facility] [employer] Address [address] [place] [address] Care Team Providers Care Community Recreation Coordinator Name Role Phone Unknown, Provider Primary Care Provider Unavaila ble Source Comments [facility],non-owned Affiliates and Associated Physician Practices is amultiple site organization consisting of ambulatory clinics and hospital sitesin [place], [place], [place] and [place]. This disclosure is being madepursuant to the Care Everywhere program and may not contain all information available regarding this patient. 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
--- OUTSIDE RECORDS SUMMARY | 2024-08-24 11:32 | XMS_ITS | Encounter Summary ---
Author Organization [facility] Healthcare Address [address] [place] [address] Care Team Providers Care Thermodynamics Teacher Name Role Phone No, Physician Primary Care Provider [phone] Gareth Hansen MD Primary Care Provider Encounter Details Date Type Department Care Team (Late st Contact Info) Description 08/31/2023 Orders Only [facility] [place] Information Management [address] [place] [id number] Gareth Hansen MD [address] [place] [address] [address] [place] [address] Social History Tobacco Use Types Packs/Day Years Used Date Smoking Tobacco: Never Smokeless Tobacco: Never Alcohol Use Standard Drinks/Week Comments No 0 (1 standard drink = 0.6 oz pur e alcohol) Sex and Gender Information Value Date Recorded Sex Assigned at Not on file 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. Unfortunately has limited information as stating that [...] on filedocumented in this encounter Care Teams Thermodynamics Teacher Relationship Specialty Start Date End Date No, Physician PCP - General 08/19/23 09/11/23 Gareth Hansen MD PCP - General Family Medicine 09/12/23 documented as of this encounter
[2024-08-24 12:17] LABS: Alanine Aminotransferase 45 U/L (6-50); Albumin Level 4.8 g/dL (3.5-5.1); Alkaline Phosphatase 80 U/L (38-126); Amylase 76 U/L (30-110); Anion Gap 9 mmol/L (4-12); Aspartate Amino Transferase 26 U/L (17-59); Bilirubin Direct 0.1 mg/dL (0-0.3); Bilirubin,Total 0.9 mg/dL (0.2-1.3); Blood Urea Nitrogen 13 mg/dL (9-20); Calcium 9.6 mg/dL (8.4-10.2); Carbon Dioxide 26 mmol/L (22-30); Chloride 104 mmol/L (98-107); Estimated Glomerular Filt Rate > 60; Glucose 110 mg/dL (65-110); Lipase 91 U/L (23-300); Potassium 4.5 mmol/L (3.4-5.0); Sodium 139 mmol/L (137-145)
== END 2024-08-24 11:17 | disposition home or self-care (01) ==
LOC: ANHSURGERY 11:22
PROVIDERS: Visit Provider Surgery
DX: K80.10 Calculus of gallbladder with chronic cholecystitis without obstruction (principal)
CPT/HCPCS: 36415; 80053; 82150; 82248; 83690

== ENCOUNTER 2024-08-30 00:39 | Day surgery (SDC) | payer BC, SELFPAY ==
[2024-08-23 14:24] VITALS: BMI 31.6
--- NOTE | 2024-08-23 14:36 | PC.NURSE ---
Report to the Outpatient Waiting Room, entrance under the green pavilion located off [facility], at time __0645am on date __08/30/24 . Planned Procedure Time: __0845am .? Time changes happen often and if your time is changed the preop area will call you the afternoon before. - You and your visitor will be asked to self-screen and do not enter if you have any COVID symptoms. Please call surgeon if you need to reschedule. - A mask is optional within the hospital at this time. Patients may have clear liquids (water, carbonated beverages, clear teas, apple juice) until 3 hours prior to surgery with a maximum of 20 ounces. - No food from midnight until time of surgery and no smoking, or chewing tobacco (or any form of nicotine). No chewing gum, candy or mints. (0545am) Take only the following medications with a SIP of water on the morning of surgery: None DO NOT STOP ANY OF YOUR OTHER PRESCRIPTION MEDICATIONS PRIOR TO SURGERY EXCEPT THE FOLLOWING Hold all vitamins and supplements for 3 days per anesthesiologist. 08/26/24 date of last dose. Medications to discontinue per physician __None Date to take last dose____None Please no make-up, nail sinhala, hairspray, perfume, deodorant, or body powder the day of surgery.? No jewelry (including any body piercings) or valuables the day of surgery, leave them at home.? Please take a shower or bath the night before, or the morning of, surgery with an antibacterial soap.? Wear comfortable, loose fitting clothing. - Jewelry must be removed prior to entering the operating room.? Rings and piercings that are not removed may be cut off. - The hospital will not accept responsibility for valuables.? - Please leave all valuables, including medications, at home the day of surgery. If you are going home after surgery, a licensed driver utility worker must drive you home.? - NO public transportation without another adult if you receive anesthesia. - We recommend that an adult stay with you for 24 hours following discharge. - We also recommend that you do not drive, make important decision, drink alcoholic beverages, or take any drugs that were not prescribed by your health care provider for at least 24 hours after your discharge time. Follow any additional instructions given to you from your surgeon. Telephone instructions given to ___Patient and asked if any additional questions and then verbalized understanding. Patient advised to call surgeon office or pre surgery nurse liaison [phone] if any additional questions.
[2024-08-30] VITALS (9 sets, daily range): BP systolic 112–133; BP diastolic 65–81; PULSE 79–93; RESP 14–24; TEMP 36.2–36.5; O2SAT 94–100
--- OUTSIDE RECORDS SUMMARY | 2024-08-30 00:41 | XMS_ITS | Referral Summary ---
Author Organization [facility] Medical Office Building B Address [address] [place] [address] Care Team Providers Care Primary Care Nurse Practitioner Name Role Phone Gareth Hansen MD Primary [...] pelvis without contrast done on 08/31/2023 at [facility] Emergency Department (scanned result) - limited information, whole report states - gallbladder is present. There are gallstones. Otherwise normal findings on the rest of imaging Order placed for [facility] US 10/14 - Caller s Concern: [...] pelvis without contrast done on 08/31/2023 at [facility] Emergency Department (scanned result) - limited information, whole report states - gallbladder is present. There are gallstones. 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
--- OUTSIDE RECORDS SUMMARY | 2024-08-30 00:41 | XMS_ITS | Clinical Summary ---
Author Organization [facility] [employer] Address [address] [place] [address] Care Team Providers Care Systems Management Consultant Name Role Phone Unknown, Provider Primary Care Provider Unavaila ble Source Comments [facility],non-owned Affiliates and Associated Physician Practices is amultiple site organization consisting of ambulatory clinics and hospital sitesin [place], [place], [place] and [place]. This disclosure is being madepursuant to the Care Everywhere program and may not contain all information available regarding this patient. 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
--- OUTSIDE RECORDS SUMMARY | 2024-08-30 00:41 | XMS_ITS | Encounter Summary ---
Author Organization [facility] Healthcare Address [address] [place] [address] Care Team Providers Care Superintendent Job Name Role Phone No, Physician Primary Care Provider [phone] Gareth Hansen MD Primary Care Provider Encounter Details Date Type Department Care Team (Late st Contact Info) Description 08/31/2023 Orders Only [facility] Health Information Management [address] [place] [phone] Gareth Hansen MD [address] [place] [address] [address] [place] [address] Social History Tobacco Use Types Packs/Day Years Used Date Smoking Tobacco: Never Smokeless Tobacco: Never Alcohol Use Standard Drinks/Week Comments No 0 (1 standard drink = 0.6 oz pur e alcohol) Sex and Gender Information Value Date Recorded Sex Assigned at Not on file 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 Unfortunately has limited information as stating that [...] on filedocumented in this encounter Care Teams Superintendent Job Relationship Specialty Start Date End Date No, Physician PCP - General 08/19/23 09/11/23 Gareth Hansen MD PCP - General Family Medicine 09/12/23 documented as of this encounter
--- OUTSIDE RECORDS SUMMARY | 2024-08-30 00:41 | XMS_ITS | Clinical Summary ---
Author Organization [facility] Office Building [facility] Address [address] [place] [address] Care Team Providers Care Clerk Cashier Name Role Phone Gareth Hansen MD Primary [...] pelvis without contrast done on 08/31/2023 at [facility] Emergency Department (scanned result) - limited information, whole report states - gallbladder is present. There are gallstones. Otherwise normal findings on the rest of imaging Order placed for [email or web address] US 10/14 - Caller s Concern: patient [...] pelvis without contrast done on 08/31/2023 at [facility] Emergency Department (scanned result) - limited information, whole report states - gallbladder is present. There are gallstones. 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
--- NOTE | 2024-08-30 07:14 | PM.IMHP ---
H&P: HPI History of Present Illness Date/Time: 08/30/24 07:14 Chief Complaint: Abdominal pain, bloating Narrative: Mj is a 38 y/o male who presents to the office at the request of Laina Rothman APRN for evaluation of LUQ/epigastric pain that radiates to his lower back with associated nausea. Will occasionally have abdominal bloating. Patient states these symptoms have been occurring for two years and has been worsening. States pain starts about one hour after eating and will last for about 4 hours afterwards. Fatty foods mostly trigger symptoms. He has been taking pantoprazole daily since being in the ED. No changes on bowel habits. CT abd/pelvis on 06/19/24 showed cholelithiasis. Review of Systems Review of Systems: All systems reviewed & are unremarkable except as noted in HPI and below PMFSH Past Medical History Medical History Anxiety No pertinent past medical history Surgical History Surgical History No pertinent past surgical history Family History Family History Father Non-Hodgkin lymphoma Social History Social History Smoking status: Never smoker Alcohol intake: never Substance use: never Substance use type: does not use Do You Feel Safe in your Home?: Yes Lack of Transportation: No Lack of Food: Never True Current Housing: I Have Housing Concerned About Future Housing: No Difficulty Paying Gas/Electric Bills: No Difficulty Paying for Meds: No Currently Unemployed: No Education: Associate Degree Difficulty w/ Childcare or Family Care: No Living arrangements: with roommate(s) Additional living arrangements comments: Partner Spiritual care concerns: No Agree to blood products: Yes Meds Home Medications and Allergies Home Medications ?Medication ?Instructions ?Recorded ?Confirmed ?Type pantoprazole 40 mg tablet,delayed 40 mg PO BID #60 tabs 07/20/24 08/23/24 Rx release (Protonix) acetaminophen 500 mg tablet 500 mg PO Q6H PRN pain 08/23/24 08/23/24 History Allergies Allergy/AdvReac Type Severity Reaction Status Date / Time No Known Allergies Allergy Verified 08/23/24 14:22 Exam Const: General: cooperative, comfortable and no acute distress Resp: Auscultation: clear to auscultation bilaterally Cardio: Rate: regular rate Rhythm: regular rhythm GI: Inspection: normal to inspection and non-distended GI Palp: No abdominal tenderness, Yes Soft to palpation, No Tenderness to palpation present (GI), No Guarding due to palpation present (GI) and No Rigid due to palpation Assessment and Plan Assessment and plan (1) CCC (chronic calculous cholecystitis): Code(s): K80.10 - Calculus of gallbladder with chronic cholecystitis without obstruction Status: Acute Assessment and Plan: exams and imaging consistent with chronic cholecystitis, cholelithiasis, long discussion with patient regarding surgical management and he would like to proceed with cholecystectomy
--- NOTE | 2024-08-30 07:15 | WPDHPUPDATE1 ---
History and Physical Update Update Date/Time: 08/30/24 07:15 History and Physical has been reviewed, including an updated exam of the patient. There are NO changes in the patient's condition. Risks, benefits, and alternatives have been discussed and questions answered. Patient agrees to proceed with procedure.
[2024-08-30] MEDS: KETOROLAC 15 MG/ML VIAL (*BKC) IV PUSH (07:30)
[2024-08-30] MEDS: ACETAMINOPHEN 500 MG TABLET 1000 MG PO (07:30)
[2024-08-30] MEDS: LACTATED RINGERS 1,000 ML 30 ML IV CONT ×2 (07:30→09:45)
--- NOTE | 2024-08-30 08:23 | WPDANESEPPF ---
Anes - Initial Pre Proc Eval Procedure: Operation Date: 08/30/24 09:00 Proposed Procedures p Laparoscopic Cholecystectomy - Mary Knapp MD Date/Time: 08/30/24 08:23 Surgeon: Mary Knapp MD Pre Op Diagnosis: Chr Cholecystitis with Cholelithiasis Patient Data Age: 38 Gender: M Height: 1.83 m Weight: 106 kg Allergies Allergy/AdvReac Type Severity Reaction Status Date / Time No Known Allergies Allergy Verified 08/23/24 14:22 Home Medications ?Medication ?Instructions ?Recorded ?Confirmed ?Type pantoprazole 40 mg tablet,delayed 40 mg PO BID #60 tabs 07/20/24 08/23/24 Rx release (Protonix) acetaminophen 500 mg tablet 500 mg PO Q6H PRN pain 08/23/24 08/23/24 History Patient hx anesthesia problems: none Family hx anesthesia problems: none Results Review: All pre-operative results and documents have been reviewed as part of the pre-operative evaluation. [facility] Past Medical History Medical History Anxiety No pertinent past medical history Surgical History Surgical History No pertinent past surgical history Family History Family History Father Non-Hodgkin lymphoma Social History Social History Smoking status: Never smoker Alcohol intake: never Substance use: never Substance use type: does not use Do You Feel Safe in your Home?: Yes Lack of Transportation: No Lack of Food: Never True Current Housing: I Have Housing Concerned About Future Housing: No Difficulty Paying Gas/Electric Bills: No Difficulty Paying for Meds: No Currently Unemployed: No Education: Associate Degree Difficulty w/ Childcare or Family Care: No Living arrangements: with roommate(s) Additional living arrangements comments: Partner Spiritual care concerns: No Agree to blood products: Yes Anes - Eval Final PreProcedure Day of Procedure 08/30/24 08:23 Patient weight: obese Heart: regular rate and rhythm Lungs: clear to auscultation Airway: Mallampati scale class II Neurological: alert and oriented Last oral intake: >/= 8 hours ASA classification: II Emergent: no Anesthetic plan: proceed Anesthesia type and monitoring: general ETT and standard monitoring Results Review: All pre-operative results and documents have been reviewed as part of the pre-operative evaluation. Informed Consent: The patient's anesthetic plan and its attendant risks and benefits were discussed with the patient/family/POA. Questions were solicited and answers provided to the satisfaction of the patient/family/POA.
[2024-08-30] MEDS: ceFAZolin 2 GM/D5W 50 ML 2 GM/50 ML BAG IVPB (08:40)
[2024-08-30] MEDS: BUPIVACAINE/EPINEPHRINE 0.5% 50 ML VIAL 30 ML INFILTRATE (09:00)
--- NOTE | 2024-08-30 09:24 | S_PTH ---
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
--- NOTE | 2024-08-30 09:47 | P.OP_ITS ---
Procedure Note - Detailed Date of Procedure 08/30/24 Pre-op Diagnosis cholecystitis with cholelithiasis Post-op Diagnosis Same Procedure Performed Laparoscopic cholecystectomy Surgeon Mary Knapp MD Anesthesia General Indications 38-year-old male presenting with postprandial right upper quadrant, epigastric abdominal pain. Workup, including imaging, significant for cholecystitis, cholelithiasis. Findings Moderate cholecystitis with large amount of omental adhesions Description of Procedure The patient was taken to the operating room placed in the supine position. After adequate induction of general anesthesia, the patient was prepped and draped in normal sterile fashion. A time-out was then performed to verify the patient's identity as well as the procedure being performed. I then made a 5 mm incision in the infraumbilical region. Through this, a Veress needle was placed into the peritoneal cavity and CO2 gas was then insufflated. After adequate pneumoperitoneum was achieved, the Veress needle was removed and a 5 mm optiview trocar was placed through this incision under direct visualization. I then placed the laparoscope through this trocar site and under direct visualization placed a further 12 mm subxiphoid port as well as 2 additional 5 mm ports in the right upper abdomen. The gallbladder was then identified and was noted to be moderately inflamed, distended, and full of gallstones. There was a significant amount of omental adhesions to the gallbladder all indicative of cholecystitis. I was able to sharply take down these adhesions with the Bovie cautery. I was then able to place a grasper at the dome of the gallbladder and this was retracted anterior and cephalad up over the liver. A 2nd retractor was then placed at the infundibulum and retracted laterally, this allowed visualization of the triangle of Calot. I then was able to visualize the cystic duct in its entirety from its proximal insertion into the gallbladder, to its distal junction with the common hepatic/common bile duct junction. At this point, I carefully skeletonized the proximal cystic duct with the [place] dissector. I then clipped and transected the proximal cystic duct. Next I v isualized the cystic artery. Again the artery was skeletonized, clipped, and transected. I then used the Bovie cautery to take down the peritoneal attachments of the gallbladder off the liver bed. This was somewhat difficult given the amount of inflammation in the posterior space. Once the gallbladder specimen was completely detached, an endo-pouch was placed through the 12 mm port site. I then placed the gallbladder specimen into the Endo pouch and removed the endo-pouch from the 12 mm port site. The specimen will now be sent to pathology for further review. I then copiously irrigated the right upper quadrant. Some mild oozing was noted in the liver bed and this was controlled with the bovie cautery. Hemostasis was noted in the liver bed, the clips were noted to be in good position on both the cystic duct stump and the cystic artery stump. No other pathology was noted in the right upper quadrant. I then moved the laparoscope to the subxiphoid port. No iatrogenic injury or other pathology was noted in the lower abdomen. I then closed the 12 mm trocar site under direct visualization using the Pola cone and 0 Vicryl suture. At this point, the abdomen was desufflated and all ports removed. All port sites were then closed with 4.O Monocryl subcuticular sutures. Dermabond was placed on each incision. The patient tolerated the procedure well, was extubated in the ope rating room postoperative and will be transferred to the recovery room in stable condition Estimated Blood Loss 20 Drains No Packing No Pathology Yes Complications No immediate complications Condition Stable Disposition PACU [facility] Billing Surgery - Charge Forward: Surgery Billing
[2024-08-30] MEDS: fentaNYL CITRATE INJ (*CRX) 100 MCG/2 ML VIAL 25 MCG IV PUSH ×4 (09:58→10:19)
== END 2024-08-30 11:45 | disposition home or self-care (01) ==
PROVIDERS: Visit Provider Surgery
PROC: 0FT44ZZ Resection of Gallbladder, Percutaneous Endoscopic Approach (ICD-10-PCS; CPT 47562; principal; 2024-08-30 09:00)
DX: K80.10 Calculus of gallbladder with chronic cholecystitis without obstruction (principal); K66.0 Peritoneal adhesions (postprocedural) (postinfection); E66.9 Obesity, unspecified; Z68.31 Body mass index [BMI] 31.0-31.9, adult
CPT/HCPCS: 47562; 88304; A9270; J0690; J1596; J1885; J2003; J2250; J2405; J2704; J2710; J3010; J7030; J7120